=== PATIENT | male | born 1955 | race Caucasian/White ===

== ENCOUNTER 2019-07-08 12:14 | Observation (INO) | payer BC ==
--- NOTE | 2019-07-03 19:33 | HP ---
CC: Dr. Liberty Mcintosh, [facility], [address] [place] [address] * HISTORY AND PHYSICAL: DATE OF PLANNED ADMISSION AND SURGERY: 07/08/19 HISTORY OF PRESENT ILLNESS: Mr. Weir is a 63-year-old white male with metastatic adenocarcinoma of the prostate, bilateral ureteral obstruction due to above, status post placement of bilateral nephrostomy tubes, who is admitted for cystoscopy, transurethral resection of the prostate, attempt at bilateral ureteral stents placement and if successful, bilateral nephrostomy tubes removal. Mr. Weir is a very nice, but unfortunate man who was diagnosed in 2014 with invasive ductal carcinoma of the left breast that was estrogen-receptor positive and progesterone-receptor positive, who underwent a treatment with 4 cycles of Adriamycin-cyclophosphamide completed in September 2015. In October 2015, he underwent left complete mastectomy with sentinel lymph node biopsy. The pathologist confirmed an invasive ductal carcinoma measuring 1.4 cm with no lymphovascular invasion and he had 1 positive lymph node that was metastatic. The patient underwent additional treatment with Taxol for 12 weeks and then he received a course of radiation therapy. He has been maintained on tamoxifen and has done well without recurrence of his disease. In December 2018 he had a renal ultrasound because of elevated Cr. He was noted to have severe bilateral hydroureteronephrosis as a cause of the decreased renal function. He was worked up and was noted to have aggressive prostate carcinoma with diffuse bony metastatic disease. At that time, his serum creatinine was 4.2 and potassium 6.3. His PSA was elevated at 43. He had urgent placement of bilateral nephrostomy tubes in [facility]. Bone biopsy confirmed poorly differentiated prostate carcinoma.The patient was then referred to my office by Dr. Mcintosh, his oncologist in [place]. He was started by Dr. Mcintosh on bicalutamide and Lupron and has been maintained on the treatment. I performed a cystoscopy on him earlier this year, which showed significant degree of invasion of the bladder neck and of the trigone, especially the left trigone with prostate carcinoma. It was felt that he was not a candidate for stents placement. The nephrostomy tubes have been replaced periodically in [place] last done within the last month. I repeated his cystoscopy one week prior to this admission and there was an obstructing prostate,the right trigone involvement has significantly diminished. He still had a fair amount of tumor invading his left trigone. He also has noted increasing voided volumes with decreased drainage from his right nephrostomy tube indicating that his right ureter is now at least partially patent. Because of the above findings, the patient is admitted for transurethral resection of the prostate, with attempt at placement of bilateral ureteral stents and if that is successful, for removal of the nephrostomy tubes. It is more likely that the right orifice will be identified considering the improvement in the cystoscopic appearance of the base of his bladder. PAST MEDICAL HISTORY AND SYSTEM REVIEW: In addition to the above aggressive malignancies, the patient is hypertensive, has diabetes mellitus, had past right knee surgery for a torn meniscus and had bilateral cataract surgeries. He has sleep apnea. MEDICATIONS: He is maintained on the following medications: 1. Aspirin 81 mg daily. 2. Cyclobenzaprine 10 mg 1 tablet 3 times a day as needed for muscle spasms. 3. Esomeprazole 40 mg daily. 4. Loratadine 10 mg daily. 5. Metformin 500 mg twice a day. 6. Metoprolol 100 mg twice a day. 7. Rosuvastatin 10 mg daily. 8. Spironolactone 25 mg daily. 9. Vitamin D. 10. Xgeva monthly injections. ALLERGIES: He reports being allergic or having intolerance to HYDROCHLOROTHIAZIDE, CHARO INHIBITORS, VERAPAMIL, NIASPAN, OXAPROZIN, DAYPRO, LISINOPRIL, LOSARTAN, LOTREL, ZOCOR, LEVAQUIN, PERCOGESIC. FAMILY HISTORY: Negative. PHYSICAL EXAMINATION GENERAL: He is a moderately overweight, otherwise healthy looking white male. VITAL SIGNS: Blood pressure 130/80, pulse of 64, oxygen saturation 98%. HEART: Regular and rhythmic. No murmurs. LUNGS: Clear. ABDOMEN: Soft, moderately obese. No masses. He has bilateral nephrostomy tubes draining clear urine. EXTERNAL GENITALIA: Normal. RECTAL: Exam showed an indurated and fixed prostate. EXTREMITIES: Normal, no edema. IMPRESSION: 1. Diffusely metastatic adenocarcinoma of the prostate, diagnosed by needle biopsy of bony lesions, with invasion of the bladder neck and trigone with resultant bilateral hydronephrosis, managed by bilateral nephrostomy tubes. The patient is on hormone ablation therapy with Lupron. 2. History of breast cancer, treated and likely cured. PLAN: Plan is for cystoscopy, transurethral resection of the prostate because of a bladder outlet obstruction. I will attempt at identifying the right and left ureteral orifices, for bilateral retrograde pyelographies and insertion of bilateral ureteral stents. If the stents are successfully placed, the nephrostomy tubes will be removed. I discussed the above plans in detail with the patient and his . They both understand that the stents placement might not be successful if there is significant invasion of the ureteral orifices and if there is inability to identify the orifices. All their questions were answered. [id number]/[facility]PS #: [id number] [facility]
[~2019-07-08 12:14] MED LIST: Buffered Lidocaine 1% SYRIN* 1 ML/SYRINGE INTRADERM ONE; Famotidine IV* 10 MG/ML 2 ML (20 mg) IV ONE; Gentamicin ADULT (*) 160 MG in NS 0.9% 100 ML* 100 ML IVPB ONE; Lactated Ringers 1000 ML Bag* 1,000 ML IV SCH; Naloxone* 0.4 MG/ML 1 ML VIAL IV PRN; PROCHLORPERAZINE INJ 5 MG/ML 2 ML VIAL IV PRN; fentaNYL* 50 MCG/ML 2 ML VIAL (100 MCG VIAL) IV PRN; oxyCODONE TAB* 5 MG TAB PO PRN
[2019-07-08] MEDS ORDERED: Famotidine IV* 10 MG/ML 2 ML (20 mg) ONE (13:45)
[2019-07-08] MEDS ORDERED: cefTRIAXone(*) 2 GM ADDV.VIAL IVPB ONE (13:45)
[2019-07-08] MEDS ORDERED: Midazolam* 1 MG/ML 5 ML VIAL (5 MG) ONE (15:33)
[2019-07-08] MEDS ORDERED: Propofol* 10 MG/ML 20 ML BTL ONE (15:33)
[2019-07-08] MEDS ORDERED: Lidocaine 2% PF * 5 ML VIAL ONE (15:33)
[2019-07-08] MEDS ORDERED: fentaNYL* 50 MCG/ML 2 ML VIAL (100 MCG VIAL) ONE ×2 (15:33→18:32)
[2019-07-08] MEDS ORDERED: Fluorescein 10% INJ* 100 MG/ML AMP ONE (16:10)
[2019-07-08] MEDS ORDERED: Ondansetron INJ* 2 MG/ML VIAL ONE (17:25)
[2019-07-08] MEDS ORDERED: PROCHLORPERAZINE INJ 5 MG/ML 2 ML VIAL ONE (18:35)
[2019-07-08 20:00] VITALS: BP 142/75
--- NOTE | 2019-07-08 21:11 | OP ---
CC: Dr. Liberty Mcintosh * DATE OF OPERATION: 07/08/19 - [facility] DATE OF : 51 SURGEON: Jeffrey Ordonez MD. ANESTHESIOLOGIST: Jolynn Medina MD. ANESTHESIA: General. PRE-OP DIAGNOSES: 1. Locally invasive and metastatic adenocarcinoma of the prostate. 2. Bilateral ureteral obstruction due to above. 3. Status post placement of bilateral nephrostomy tubes. 4. Bladder outlet obstruction due to prostate enlargement. POST-OP DIAGNOSES: 1. Metastatic adenocarcinoma of the prostate. 2. Bladder outlet obstruction due to above. 3. Local invasion of the bladder neck and trigone by prostate carcinoma with resultant bilateral ureteral obstruction. 4. Status post placement of bilateral nephrostomy tubes. OPERATIVE PROCEDURE: 1. Cystoscopy. 2. Transurethral resection of bladder neck and trigone. 3. Bilateral retrograde pyelographies and insertion of bilateral ureteral stents (black silicone, 8.5 Cambodian, 26 cm). 4. Removal of bilateral nephrostomy tubes. 5. Transurethral resection of the prostate. INDICATIONS FOR PROCEDURE: Mr. Weir is a 63-year-old white male who was diagnosed 7 months ago with diffusely metastatic poorly differentiated adenocarcinoma of the prostate with bilateral ureteral obstruction and severe hydronephrosis and renal failure. He had urgent placement of bilateral nephrostomy tubes. He has been on hormone ablation therapy with significant drop of his PSA. Office cystoscopy showed invasion of the blader neck and of the trigone by prostate carcinoma. That seemed to be less pronounced than on earlier cystoscopies. Because of the above history and findings and the patient having been on 7 months of hormone ablation therapy, he is admitted for attempt at insertion of bilateral ureteral stents and nephrostomy tubes removal and relieving his bladder outlet obstruction. PATHOLOGY AT CYSTOSCOPY: The penile and bulbar urethra looked normal. The prostatic urethra measured about 3 cm in length, and there was moderate degree of obstruction by bilobar hyperplasia of the prostate and by a prominent median lobe. Examination of the bladder neck and of the trigone showed a significant degree of invasion by the prostate tumor. The ureteral orifices could not be identified. Following transurethral resection of the tumor in the trigone and the bladder neck and after injecting fluorescein in the nephrostomy tubes, the ureteral orifices were identified and successfully intubated. On TUR, the prostate tissue was friable, consistent with prostate cancer. It was minimally vascular. DESCRIPTION OF PROCEDURE: After successful general anesthesia, the patient was placed in the lithotomy position and prepped and draped for a cystoscopy. Cystoscopy was performed, and the above findings noted. The ureteral orifices could not be visualized. The nephrostomy tubes were then disconnected from their drainage bags and 5 cc of diluted fluorescein was injected and the location of the orifices were noted. Using the resectoscope, the trigone was resected down to muscle fibers. The ureteral orifices were then identified. A flexible tip guidewire was introduced into the right orifice and the guidewire was positioned in the area of the renal pelvis. Retrograde pyelography was performed demonstrating the renal pelvis. Before the stent was placed and to avoid the stent coiling with the nephrostomy tube, the nephrostomy tube was removed intact. A black silicon stent, 26 cm long, 8.5 Cambodian was then fed on top of the guidewire and positioned with the proximal end coiling in an upper pole calyx and the distal end coiling inside the bladder. Attention was then directed towards the left side. Exactly the same procedure was performed and the same type stent was successfully placed with the proximal end coiling in the renal pelvis and the distal end coiling inside the bladder. There was good drainage of contrast from both collecting systems. Attention was then directed to the prostate. Using the resectoscope and after adjusting the in-flow and out-flow to avoid over-distention of the bladder, the obstructing prostate tissue was resected. The limits of the resection were the bladder neck proximally, the verumontanum distally, and the capsule circumferentially. At the completion of the procedures, the prostate fossa was wide open. There was no perforation of the prostate capsule. The verumontanum and external sphincter were all intact. All the prostate chips were evacuated and sent for pathology. After making sure there was very good hemostasis and that the ureteral stents are still in good position on fluoroscopy, the resectoscope was removed and a size 22 Cambodian Maldonado catheter was passed inside the bladder and the balloon inflated with 30 cc of water. The Maldonado catheter was then taped under gentle traction to the right thigh of the patient. Irrigation yielded clear returns. The patient tolerated the procedure well and left the operating room in good condition. The blood loss was minimal. The specimen was prostate chips and there were no complications. [id number]/[facility] #: [id number] BRICE
[2019-07-09 07:59] LABS: Hematocrit 37 % (42-52); Hemoglobin 12.9 g/dL (14.0-18.0); Mean Corpuscular HGB Conc 35 g/dL (31-36); Mean Corpuscular Hemoglobin 30 pg (27-31); Mean Corpuscular Volume 87 fL (80-94); Mean Platelet Volume 6.3 fL (7.4-10.4); Platelet Count 255 10^3/uL (150-450); Red Blood Count 4.26 10^6 /uL (4.18-5.48); Red Cell Distribution Width 15 % (10-15); White Blood Count 14.7 10^3/uL (3.5-10.8)
[2019-07-09 08:19] LABS: BUN/Creatinine Ratio 14.1 (8-20); Calcium 8.7 mg/dL (8.6-10.3); EGFR African American 68.2 (>60); EGFR Non-African American 56.4 (>60); Potassium 4.5 mmol/L (3.5-5.0)
[2019-07-09 08:59] LABS: ABS Basophils 0.1 10^3/ul (0-0.2); ABS Eosinophils 0.5 10^3/ul (0-0.6); ABS Lymphocytes 2.1 10^3/ul (1.0-4.8); ABS Monocytes 1.7 10^3/ul (0-0.8); ABS Neutrophils 10.4 10^3/ul (1.5-7.7); Eosinophil % 3.5 %; Lymphocyte % 13.9 %
--- NOTE | 2019-07-22 13:36 | DS ---
Amended report to correct patient account number. CC: Dr. Liberty Mcintosh, [facility] in [place] * DISCHARGE SUMMARY: DATE OF ADMISSION: 07/08/19 DATE OF DISCHARGE: 07/09/19 FINAL DIAGNOSES: 1. Metastatic poorly differentiated adenocarcinoma of the prostate. 2. Bladder outlet obstruction due to above. 3. Bilateral ureteral obstruction due to above. OPERATIONS: 1. Cystoscopy. 2. Transurethral resection of the prostate. 3. Bilateral retrograde pyelographies and insertion of bilateral ureteral stents. 4. Removal of bilateral nephrostomy tubes. HISTORY: Mr. Weir is a 63-year-old white male who was diagnosed in December 2018 with a poorly-differentiated, diffusely-metastatic adenocarcinoma of the prostate associated with bilateral ureteral obstruction, and renal failure. He had urgent bilateral nephrostomy tubes insertions at [facility]. Bone biopsy from a metastatic bone focus confirmed prostate carcinoma. The patient was started on hormone ablation therapy in the form of Lupron and bicalutamide. He had a good clinical response with significant decrease in the PSA level. The patient was evaluated in my office with cystoscopy, which showed invasion of the bladder neck and of the trigone by the prostate carcinoma, and a large prostate obstructing the bladder outlet After the patient has been on hormone ablation therapy for 7 months, and with the expected decrease in the tumor invasion of the trigone, the patient is admitted for bilateral ureteral stent insertions and removal of the nephrostomy tubes and trans urethral resection of the prostate to relieve his bladder outlet obstruction. PAST MEDICAL HISTORY: Relevant for the diagnosis of ductal carcinoma of the left breast in 2014. His tumor was estrogen-receptor positive and progesterone- receptor positive. He was treated with left mastectomy and four cycles of Adriamycin, cyclophosphamide, completed in September 2015. He received Taxol and radiation therapy as additional treatment. He has been maintained on tamoxifen and has had no recurrence of his disease. The patient is followed by Dr. Mcintosh, his oncologist in [place]. The patient is diabetic, maintained on metformin, and has hypertension, maintained on metoprolol and spironolactone. ALLERGIES: The patient reports having numerous allergies or intolerance to HYDROCHLOROTHIAZIDE, CHARO INHIBITORS, VERAPAMIL, NIASPAN, OXAPROZIN, DAYPRO, LISINOPRIL, LOSARTAN, LOTREL, ZOCOR, QUINOLONES AND PERCOGESIC. FAMILY HISTORY: Negative for prostate or breast carcinoma. PHYSICAL EXAM: Preoperative physical examination showed a moderately overweight male, who is otherwise healthy looking. The exam of the heart and lungs is normal. Abdomen is obese, but no masses. He has bilateral nephrostomy tubes draining clear urine. Rectal exam showed an indurated, fixed, moderately enlarged prostate . Extremities showed no edema. LABORATORY DATA: Preoperative lab work was within normal. His hematocrit and hemoglobin were normal. His creatinine was 1.3 and the PSA down to about 2 on hormone treatment. Preoperative urine cultures showed Citrobacter, Enterococcus E. coli and Pseudomonas. The cultures were obtained from the right and left nephrostomy tubes and were covered with proper antibiotics prior to his admission. COURSE IN HOSPITAL: The patient was admitted the morning of his surgery. He underwent an uncomplicated cystoscopy, transurethral resection of the prostate and of the trigone, and successful identification of the ureteral orifices, insertion of bilateral ureteral stents and removal of both right & left nephrostomy tubes. He was kept overnight for observation and his urine remained clear. His creatinine was stable and he had excellent urine output overnight indicating that the stents were draining well. The patient is being discharged home on Maldonado catheter drainage. He had normal vital signs. His urine was clear. He was doing very well and had no postoperative complications. The plan is to see the patient back in the office in 1 week for Maldonado catheter removal. His renal function will be rechecked and he will also have a renal ultrasound to confirm that the hydronephrosis has not recurred and that the stents are draining well. The pathology on the resected prostate tissue confirmed Eduard 9 adenocarcinoma. He will continue his follow up with Dr. Mcintosh, his oncologist, for the medical treatment of his prostate and breast cancers. [id number]/[facility] #: [id number] [facility]
== END 2019-07-09 12:05 | disposition home or self-care (01) ==
LOC: OR 12:14 → SSU 18:30
PROVIDERS: ADMIT Urology; ATTEND Urology
DX: C61 Malignant neoplasm of prostate (principal); N13.5 Crossing vessel and stricture of ureter without hydronephrosis; Z93.6 Other artificial openings of urinary tract status; I10 Essential (primary) hypertension; E11.9 Type 2 diabetes mellitus without complications; G47.30 Sleep apnea, unspecified; Z79.899 Other long term (current) drug therapy; Z79.82 Long term (current) use of aspirin; Z92.21 Personal history of antineoplastic chemotherapy; Z85.3 Personal history of malignant neoplasm of breast
CPT/HCPCS: 36415; 74420; 80048; 85025; 88305; 88341; 88342; 96374; 96375; A9270-GY; C1876; G0378; J0696; J0780; J1580; J2250; J2405; J2704; J3010

== ENCOUNTER 2019-07-08 20:10 | Observation (INO) | payer BC ==
[2019-07-08] MEDS ORDERED: Oxybutynin TAB* 5 MG PO PRN (22:44)
[2019-07-08] MEDS ORDERED: Lactated Ringers 1000 ML Bag* 1,000 ML IV SCH (23:00)
[2019-07-09] MEDS ORDERED: Cyclobenzaprine TAB* 10 MG PO PRN (00:45)
[2019-07-09] MEDS ORDERED: Magnesium Oxide TAB* 400 MG PO SCH (09:00)
[2019-07-09] MEDS ORDERED: Metoprolol Tartrate TAB* 100 MG TAB PO SCH (09:00)
[2019-07-09] MEDS ORDERED: Spironolactone TAB* 25 MG PO SCH (09:00)
[2019-07-09] MEDS ORDERED: Acetaminophen TAB* 325 MG PO SCH (09:00)
[2019-07-09] MEDS ORDERED: Gentamicin ADULT (*) 80 MG in NS 0.9% 100 ML* 100 ML IVPB ONE (09:00)
[2019-07-09] MEDS ORDERED: cefTRIAXone(*) 1 GM in NS 0.9% 50 ML* 50 ML IVPB ONE (09:00)
[2019-07-09] MEDS ORDERED: Cetirizine* 10 MG TAB PO SCH (09:00)
[2019-07-09] MEDS ORDERED: COENZYME Q10 PO SCH (09:00)
[2019-07-09] MEDS ORDERED: Pseudoephedrine HCL ER TAB* 120 MG PO SCH (09:00)
[2019-07-09] MEDS ORDERED: Pantoprazole TAB * 40 MG TAB PO SCH (09:00)
[2019-07-09] MEDS ORDERED: Cholecalciferol TAB* 1000 UNITS PO SCH (09:00)
[2019-07-09 11:09] VITALS: BP 128/65
[2019-07-09] MEDS ORDERED: Aspirin EC TAB* 81 MG TAB.EC PO SCH (18:00)
[2019-07-09] MEDS ORDERED: Atorvastatin* 20 MG TAB PO SCH (21:00)
== END 2019-07-09 12:05 | disposition home or self-care (01) ==
LOC: UNDOADMIN 20:10 → INTOOBSV 20:10 → SSU 20:10
PROVIDERS: ADMIT Urology; ATTEND Urology
DX: C61 Malignant neoplasm of prostate (principal); N13.5 Crossing vessel and stricture of ureter without hydronephrosis; Z93.6 Other artificial openings of urinary tract status; I10 Essential (primary) hypertension; E11.9 Type 2 diabetes mellitus without complications; G47.30 Sleep apnea, unspecified; Z79.899 Other long term (current) drug therapy; Z79.82 Long term (current) use of aspirin; Z92.21 Personal history of antineoplastic chemotherapy; Z85.3 Personal history of malignant neoplasm of breast
CPT/HCPCS: 36415; 80048; 85025; A9270-GY; J0696; J1580

== ENCOUNTER 2019-12-14 08:37 | Day surgery (SDC) | payer MEDICARE, BC ==
--- NOTE | 2019-12-09 12:12 | HP ---
CC: Dr. Liberty Mcintosh, [facility] in [place] * HISTORY AND PHYSICAL: DATE OF PLANNED ADMISSION AND SURGERY: 12/14/19 HISTORY OF PRESENT ILLNESS: Mr. Weir is a 64-year-old white male who is admitted for cystoscopy and bilateral ureteral stents exchange. Please refer to my detailed history and physical on this patient dated 07/08/19. Mr. Weir is a 64-year-old male who was diagnosed in December 2018 with poorly differentiated diffusely metastatic adenocarcinoma of the prostate causing bilateral ureteral obstruction. He initially had bilateral nephrostomy tubes placement. He was started on hormone ablation therapy with adequate chemical response. On 07/08/19, he underwent a cystoscopy, transurethral resection of an obstructing prostate and placement of bilateral ureteral stents with removal of both nephrostomy tubes. The pathology on the resected prostate tissue at that time showed Eduard 10 adenocarcinoma. The patient has been followed by his oncologist, Dr. Mcintosh, in [place]. He has been on hormone ablation therapy in the form of Lupron and also has been on abiraterone and prednisone. He had a PSA response; however, recent metastatic workup with bone scan, CT of the chest, abdomen and pelvis continues to show diffusely metastatic bony disease involving the spine, the pelvis and the femurs. After bhis TURP last July, he patient has been able to void very well with good stream, good continence and no hematuria. The ureteral stents have been well tolerated. The patient is now admitted for elective bilateral ureteral stents exchange. PAST MEDICAL HISTORY AND SYSTEM REVIEW: He was diagnosed with ductal carcinoma of the left breast in 2010. His tumor was estrogen-receptor and progesterone- receptor positive. He was treated with left mastectomy and underwent 4 cycles of chemotherapy in the form of Adriamycin and cyclophosphamide, then received Taxol and radiation therapy as additional treatment. He isn maintained on tamoxifen and he has had no recurrent disease. He diabetic, hypertensive, hyperlipidemic on treatment. MEDICATIONS: 1. The patient is diabetic, maintained on metformin 1 g daily. 2. He is hypertensive, on doxazosin 1 mg daily, Loratadine 10 mg daily, Metoprolol 100 mg bid, and Spironolactone 25 mg daily.. 3. He is on rosuvastatin 10 mg daily. ALLERGIES: He reports having multiple allergies or intolerance to HYDROCHLOROTHIAZIDE, CHARO INHIBITORS, VERAPAMIL, NIASPAN, OXAPROZIN, DAYPRO, LISINOPRIL, LOSARTAN, PERCOGESIC, LOTREL, ZOCOR, and LEVAQUIN. FAMILY HISTORY: Negative for prostate carcinoma. SOCIAL HISTORY: He is a nonsmoker. He denies the intake of any recreational drugs. He has no mental health history. PHYSICAL EXAMINATION GENERAL: He is an obese white male who looks otherwise healthy. VITAL SIGNS: Blood pressure 120/70, pulse of 60. LUNGS: Clear. HEART: Regular and rhythmic. No murmurs. ABDOMEN: Soft. No masses, no tenderness. No CVA tenderness. EXTERNAL GENITALIA: Normal. He has decrease in testicular volume. RECTAL: Exam shows a firm prostate. EXTREMITIES: Show no edema. IMPRESSION: Castrate-resistant diffusely metastatic poorly differentiated adenocarcinoma of the prostate causing bilateral ureteral obstruction, successfully managed with bilateral ureteral stents drainage. PLAN/RECOMMENDATIONS: Plan is for elective bilateral ureteral stents exchange ( 26 cm 8.5-Greenlandic black silicon). I discussed the above plans in detail with the patient and his and all their questions were answered. [id number]/[facility] #: [id number] [place]
[~2019-12-14 08:37] MED LIST changes: -Famotidine IV* 10 MG/ML 2 ML (20 mg) IV ONE; -Gentamicin ADULT (*) 160 MG in NS 0.9% 100 ML* 100 ML IVPB ONE; -Naloxone* 0.4 MG/ML 1 ML VIAL IV PRN; -PROCHLORPERAZINE INJ 5 MG/ML 2 ML VIAL IV PRN; -fentaNYL* 50 MCG/ML 2 ML VIAL (100 MCG VIAL) IV PRN; -oxyCODONE TAB* 5 MG TAB PO PRN
[2019-12-14] MEDS ORDERED: fentaNYL* 50 MCG/ML 2 ML VIAL (100 MCG VIAL) ONE (10:09)
[2019-12-14] MEDS ORDERED: Midazolam* 1 MG/ML 2 ML VIAL (2 MG) ONE (10:10)
[2019-12-14] MEDS ORDERED: cefTRIAXone(*) 2 GM ADDV.VIAL IVPB ONE (10:10)
[2019-12-14] MEDS ORDERED: Buffered Lidocaine 1% SYRIN* 1 ML/SYRINGE INTRADERM ONE (10:11)
[2019-12-14] MEDS ORDERED: HYDROmorphone INJ1* 1 MG/ML SYRINGE IV PRN (10:35)
[2019-12-14] MEDS ORDERED: Naloxone* 0.4 MG/ML 1 ML VIAL IV PRN (10:35)
[2019-12-14] MEDS ORDERED: Etomidate* 2 MG/ML 10 ML VIAL ONE (11:11)
[2019-12-14] MEDS ORDERED: Propofol* 10 MG/ML 20 ML BTL ONE (11:11)
[2019-12-14] MEDS ORDERED: Dexamethasone IV* 4 MG/ML 1 ML (4 MG) ONE (11:11)
[2019-12-14] MEDS ORDERED: Ondansetron INJ* 2 MG/ML VIAL ONE (11:11)
[2019-12-14 12:58] VITALS: BP 144/92
--- NOTE | 2019-12-14 20:11 | OP ---
CC: Dr. Liberty Mcintosh, [facility] * DATE OF OPERATION: 12/14/19 - [facility] DATE OF : 51 SURGEON: Jeffrey Ordonez MD ANESTHESIOLOGIST: Dr. Manriquez. ANESTHESIA: General. PRE-OP DIAGNOSES: 1. Metastatic poorly differential adenocarcinoma of the prostate. 2. Bilateral ureteral obstruction due to above. 3. Status post placement of bilateral ureteral stents. POST-OP DIAGNOSES: 1. Metastatic poorly differential adenocarcinoma of the prostate. 2. History of bilateral ureteral obstruction, status post placement of bilateral ureteral stents. 3. Local invasion and tumor implants of prostate cancer in bladder neck and base of bladder. OPERATIVE PROCEDURE: 1. Cystoscopy. 2. Bilateral retrograde pyelographies. 3. Bilateral ureteral stents exchange (black silicone, 24 cm, 8.5-Wolof on the left and black silicone, 8.5-Wolof, 26 cm on the right). INDICATIONS FOR PROCEDURE: Mr. Weir is a 64-year-old white male who was diagnosed in December 2018 with poorly differentiated diffusely metastatic adenocarcinoma of the prostate causing bilateral ureteral obstruction and uremia. He was initially managed with placement of bilateral nephrostomy tubes and was started on hormone ablation therapy. The nephrostomy tubes were converted to bilateral ureteral stents in July 2019. At the same procedure, he underwent transurethral resection of the prostate. The pathology was Eduard 10 adenocarcinoma. The patient did respond to the hormone ablation treatment with decreased PSA, however, he still has diffusely bony metastatic bony disease and he is being treated by Dr. Mcintosh his oncologist. Because the ureteral stents has been in place for 5 months and although there is no hydronephrosis noted on the CT, the patient is admitted for elective bilateral ureteral stents exchange. PATHOLOGY: At cystoscopy, the penile and bulbar urethrae looked normal. The prostatic urethra was opened consistent with a history of TURP. The trigone and the bladder neck were both invaded by the prostate cancer. There were also several nodules of prostate cancer implants noted in the right base of the bladder, the trigone, the bladder neck at 12 o'clock and 1 o'clock. These lesions were not bleeding and were nonobstructing to the bladder outlet. The distal limbs of the stent were seen coming from the area of the trigone. The ureteral orifices were completely obscured by the prostate cancer lesions. Bilateral retrograde pyelographies showed no hydronephrosis. DESCRIPTION OF PROCEDURE: After successful general anesthesia, the patient was placed in the lithotomy position and was prepped and draped for a cystoscopy. Cystoscopy was performed. The bladder was carefully inspected and the above findings were noted. Because the the prostate cancer lesions were non-bleeding and non-obstructing and considering the patient had diffuse metastatic disease, decision was made not to resect them. The distal limb of the left ureteral stent was then grasped and was pulled out to the level of the urethral meatus. A flexible tip guidewire was then introduced into the lumen of the stent and positioned in the area of the renal pelvis. The cystoscope was reintroduced over the guidewire and a 5-Wolof open- ended catheter was fed on top of the guidewire and retrograde pyelography was performed demonstrating the collecting system, showing no hydronephrosis. A black silicone stent, a 24 cm long, 8.5-Wolof was then placed with the proximal end coiling in the renal pelvis and the distal end coiling inside the bladder. Attention was then directed to the right side. Exactly the same procedure was performed for right ureteral stent exchange. Because the right kidney was higher than the left, the stent used was a black silicone 26 cm long 8.5- Wolof. There was good drainage of contrast from both kidneys. The patient tolerated the procedure well and left the operating room in good condition. [id number]/[facility] #: [id number] MTDD
== END 2019-12-14 12:59 | disposition home or self-care (01) ==
LOC: OR 08:37
PROVIDERS: ATTEND Urology
DX: N13.1 Hydronephrosis with ureteral stricture, not elsewhere classified (principal); C61 Malignant neoplasm of prostate; C79.11 Secondary malignant neoplasm of bladder; C79.51 Secondary malignant neoplasm of bone; E11.9 Type 2 diabetes mellitus without complications; Z79.84 Long term (current) use of oral hypoglycemic drugs; I12.9 Hypertensive chronic kidney disease with stage 1 through stage 4 chronic kidney disease, or unspecified chronic kidney disease; N18.9 Chronic kidney disease, unspecified; E78.5 Hyperlipidemia, unspecified; G89.29 Other chronic pain; F32.9 Major depressive disorder, single episode, unspecified
CPT/HCPCS: 74420; C1876; J0696; J1100; J2250; J2405; J2704; J3010